=== PATIENT | male | born 1940 | race Caucasian/White ===

== ENCOUNTER 2019-04-07 13:44 | Emergency (ER) | payer MEDICARE, BC ==
[2019-04-07] MEDS ORDERED: Sodium Chloride 0.9% 10 ML Syringe FLUSH PRN (14:05)
[2019-04-07] MEDS ORDERED: Sodium Chloride 0.9% 1,000 ML IV SCH (14:15)
[2019-04-07 14:42] LABS: ANION GAP 15.4 mmol/L (10-20); CHLORIDE,CL 104 mmol/L (98-107); SODIUM,NA 140 mmol/L (136-145)
--- NOTE | 2019-04-07 14:43 | CT ---
[id number] CT/CT Head WO IV EXAM: NONCONTRAST HEAD CT INDICATION: Confusion and facial droop according to the family. COMPARISON: None. DISCUSSION: There is mild generalized atrophy. Mild chronic small vessel ischemic changes. Small chronic lacunar infarct left lentiform nucleus versus prominent for carotid space. No mass effect or midline shift. No acute hemorrhage or extra-axial fluid collection. No acute territorial infarct is identified. A limited look at the orbits and paranasal sinuses is unremarkable. IMPRESSION: 1. No acute findings. Mirza Gray MD 04/07/19 [id number] Thank you for allowing us to participate in the care of your patient.
--- NOTE | 2019-04-07 14:59 | CR ---
[id number] RAD/RAD Chest PA or AP 1V EXAM: FRONTAL CHEST INDICATION: Fatigue and confusion. COMPARISON: None. DISCUSSION: The lungs are mildly hypoinflated and the right hemidiaphragm is mildly elevated. The heart is enlarged with borderline central vascular congestion. Mild bibasilar atelectasis with no definite infiltrates identified. Prior sternotomy. Left subclavian approach pacemaker leads with the tips overlying the RA and RV. IMPRESSION: 1. Mild cardiomegaly with borderline central vascular congestion. Mirza Gray MD 04/07/19 [id number] Thank you for allowing us to participate in the care of your patient.
[2019-04-07] MEDS ORDERED: Iopamidol 612 MG/ML 100 ML Bottle IVPUSH ONE (15:05)
--- NOTE | 2019-04-07 15:26 | EDM.PDOC ---
ED HPI GENERAL MEDICAL PROBLEM - General Chief Complaint: Neurological Problem Stated Complaint: HAD RECENT HEART SURGERY;SEEMS DISORIENTATED Time Seen by Provider: 04/07/19 13:44 Source of Information: Reports: Patient, Family History Limitations: Reports: No Limitations - History of Present Illness INITIAL COMMENTS - FREE TEXT/NARRATIVE: Pt. presents to ER with family with complaints of disorientation and fatigue. states that she went grocery shopping at approx. 10:30 and came home around 11. When she got home, pt. was more somnolent and drooling out of the L side of his mouth. His speech was a bit garbled at that time and was having difficulty finding words. Pt. reports that he felt fine when he woke around 9AM he had breakfast and a shower, but he also noticed that the TV screen was a little fuzzy shortly thereafter. He also complained of some "dizziness" this AM as well. Pt. presents to ER this afternoon. He denies any fever or chills. No recent trauma. Pt. states that he underwent mechanical aortic valve replacement and placement of pacemaker/defibrillator a week ago. Theses procedures were done in [place], [place]. Pt. is currently on coumadin. Pt. denies any chest pain or shortness of breath. No nausea, vomiting, or diarrhea. Onset: Today Onset Date: 04/07/19 Location: Reports: Generalized - Related Data Allergies Allergy/AdvReac Type Severity Reaction Status Date / Time No Known Allergies Allergy Verified 04/07/19 14:05 ED ROS GENERAL - Review of Systems Review Of Systems: See Below Constitutional: Reports: Weakness, Fatigue HEENT: Reports: No Symptoms Respiratory: Reports: No Symptoms Cardiovascular: Reports: No Symptoms Endocrine: Reports: No Symptoms GI/Abdominal: Reports: No Symptoms : Reports: No Symptoms Musculoskeletal: Reports: No Symptoms Skin: Reports: No Symptoms ED EXAM, GENERAL - Physical Exam Exam: See Below Exam Limited By: No Limitations General Appearance: Alert, WD/WN, No Apparent Distress Nose: Normal Inspection, Normal Mucosa, No Blood Throat/Mouth: Normal Inspection, Normal Lips, Normal Teeth, Normal Gums, Normal Oropharynx, Normal Voice, No Airway Compromise Head: Atraumatic, Normocephalic Neck: Normal Inspection, Supple, Non-Tender, Full Range of Motion Respiratory/Chest: No Respiratory Distress, Lungs Clear, Normal Breath Sounds, No Accessory Muscle Use, Chest Non-Tender Cardiovascular: Normal Peripheral Pulses, Regular Rate, Rhythm, No Edema, No Gallop, No JVD, No Murmur, No Rub GI/Abdominal: Normal Bowel Sounds, Soft, Non-Tender, No Organomegaly, No Distention, No Abnormal Bruit, No Mass, Pelvis Stable (Male) Exam: No Hernia, Normal Inspection, Normal Prostate, Circumcised Rectal (Males) Exam: Deferred Back Exam: Normal Inspection, Full Range of Motion Extremities: Normal Inspection, Normal Range of Motion, Non-Tender, No Pedal Edema, Normal Capillary Refill Neurological: Alert, Oriented, CN II-XII Intact, Normal Cognition, Other ( Initially NIH stoke scale was 2, one point off for for L lower extremity drift and L facial droop. ) Course - Orders/Labs/Meds Orders: Active Orders 24 hr Category Date Time Status EKG Documentation Completion [RC] STAT Care 04/07/19 14:05 Active Ang Head [CT] Stat Exams 04/07/19 15:00 Ordered Ang Neck [CT] Stat Exams 04/07/19 15:00 Ordered Sodium Chloride 0.9% [Normal Saline] 1,000 ml Med 04/07/19 14:15 Active IV ASDIRECTED Sodium Chloride 0.9% [Saline Flush] Med 04/07/19 14:05 Active 10 ml FLUSH ASDIRECTED PRN Peripheral IV Insertion Adult [OM.PC] Routine Oth 04/07/19 14:06 Ordered Medication Orders Sodium Chloride (Normal Saline) 1,000 mls @ 500 mls/hr IV ASDIRECTED HANANE Sodium Chloride (Saline Flush) 10 ml FLUSH ASDIRECTED PRN PRN Reason: Keep Vein Open Labs: Laboratory Tests 04/07/19 04/07/19 04/07/19 Range/Units 14:06 14:15 14:15 WBC 7.2 (4.0-10.0) x10^3/uL RBC 3.43 L (4.5-6.0) x10^6/uL Hgb 10.4 L (14.0-18.0) g/dL Hct 31.6 L (40.0-52.0) % MCV 92.1 (78.0-93.0) fL MCH 30.3 (26.0-32.0) pg MCHC 32.9 (32.0-36.0) g/dL RDW Coeff of [place] 12.9 (10.0-15.0) % Plt Count 329 (130-400) x10^3/uL Neut % (Auto) 65.2 (50.0-80.0) % Lymph % (Auto) 16.5 L (25.0-50.0) % [place] % (Auto) 13.4 H (2.0-11.0) % Eos % (Auto) 4.1 H (0.0-4.0) % Baso % (Auto) 0.8 (0.2-1.2) % PT 26.5 H (10.0-12.8) SEC INR 2.3 (2.0-3.5) Sodium (136-145) mmol/L Potassium (3.5-5.1) mmol/L Chloride (98-107) mmol/L Carbon Dioxide (21-32) mmol/L Anion Gap (10-20) mmol/L BUN (7-18) mg/dL Creatinine (0.70-1.30) mg/dL Est Cr Clr Drug Dosing Estimated GFR (MDRD) Glucose (74-106) mg/dL POC Glucose (74-106) mg/dL Lactic Acid (0.4-2.0) mmol/L Calcium (8.5-10.1) mg/dL Corrected Calcium (8.5-10.1) mg/dL Phosphorus (2.6-4.7) mg/dL Magnesium (1.8-2.4) mg/dL Total Bilirubin (0.2-1.0) mg/dL AST (15-37) U/L ALT (16-63) U/L Alkaline Phosphatase (46-116) U/L Troponin I (<=0.056) ng/mL C-Reactive Protein (<=0.9) mg/dL NT-Pro-B Natriuret Pep (<=450) pg/mL Total Protein (6.4-8.2) g/dL Albumin (3.4-5.0) g/dL Globulin Albumin/Globulin Ratio Urine Color Yellow (YELLOW) Urine Appearance Clear (CLEAR) Urine pH 6.0 (5.0-8.0) Ur Specific [place] <=1.005 Urine Protein Negative (NEGATIVE) mg/dL Urine Glucose (UA) Negative (NEGATIVE) mg/dL Urine Ketones Negative (NEGATIVE) mg/dL Urine Occult Blood Trace-lysed H (NEGATIVE) Urine Nitrite Negative (NEGATIVE) Urine Bilirubin Negative (NEGATIVE) Urine Urobilinogen 0.2 (0.2) EU/dL Ur Leukocyte Esterase Negative (NEGATIVE) Urine RBC 0-5 (NOT SEEN) /HPF Urine WBC Not seen (NOT SEEN) /HPF Urine Mucus Rare H (NEGATIVE) /LPF 04/07/19 04/07/19 04/07/19 Range/Units 14:15 14:17 14:26 WBC (4.0-10.0) x10^3/uL RBC (4.5-6.0) x10^6/uL Hgb (14.0-18.0) g/dL Hct (40.0-52.0) % MCV (78.0-93.0) fL MCH (26.0-32.0) pg MCHC (32.0-36.0) g/dL RDW Coeff of [place] (10.0-15.0) % Plt Count (130-400) x10^3/uL Neut % (Auto) (50.0-80.0) % Lymph % (Auto) (25.0-50.0) % [place] % (Auto) (2.0-11.0) % Eos % (Auto) (0.0-4.0) % Baso % (Auto) (0.2-1.2) % PT (10.0-12.8) SEC INR (2.0-3.5) Sodium 140 (136-145) mmol/L Potassium 4.4 (3.5-5.1) mmol/L Chloride 104 (98-107) mmol/L Carbon Dioxide 25 (21-32) mmol/L Anion Gap 15.4 (10-20) mmol/L BUN 19 H (7-18) mg/dL Creatinine 1.0 (0.70-1.30) mg/dL Est Cr Clr Drug Dosing TNP Estimated GFR (MDRD) > 60 Glucose 99 (74-106) mg/dL POC Glucose 94 (74-106) mg/dL Lactic Acid 0.8 (0.4-2.0) mmol/L Calcium 8.4 L (8.5-10.1) mg/dL Corrected Calcium 9.20 (8.5-10.1) mg/dL Phosphorus 4.1 (2.6-4.7) mg/dL Magnesium 2.3 (1.8-2.4) mg/dL Total Bilirubin 0.4 (0.2-1.0) mg/dL AST 13 L (15-37) U/L ALT 23 (16-63) U/L Alkaline Phosphatase 95 (46-116) U/L Troponin I 0.021 (<=0.056) ng/mL C-Reactive Protein 1.6 H (<=0.9) mg/dL NT-Pro-B Natriuret Pep 811 H (<=450) pg/mL Total Protein 7.2 (6.4-8.2) g/dL Albumin 3.0 L (3.4-5.0) g/dL Globulin 4.2 Albumin/Globulin Ratio 0.71 Urine Color (YELLOW) Urine Appearance (CLEAR) Urine pH (5.0-8.0) Ur Specific [place] Urine Protein (NEGATIVE) mg/dL Urine Glucose (UA) (NEGATIVE) mg/dL Urine Ketones (NEGATIVE) mg/dL Urine Occult Blood (NEGATIVE) Urine Nitrite (NEGATIVE) Urine Bilirubin (NEGATIVE) Urine Urobilinogen (0.2) EU/dL Ur Leukocyte Esterase (NEGATIVE) Urine RBC (NOT SEEN) /HPF Urine WBC (NOT SEEN) /HPF Urine Mucus (NEGATIVE) /LPF Meds: Medications Generic Name Dose Route Start Last Admin Trade Name Freq PRN Reason Stop Dose Admin Sodium Chloride 1,000 mls @ 500 mls/hr 04/07/19 14:15 Normal Saline IV ASDIRECTED HANANE Sodium Chloride 10 ml 04/07/19 14:05 Saline Flush FLUSH ASDIRECTED PRN Keep Vein Open Discontinued Medications Generic Name Dose Route Start Last Admin Trade Name Freq PRN Reason Stop Dose Admin Iopamidol 100 ml 04/07/19 15:05 Isovue-300 (61%) IVPUSH 04/07/19 15:06 ONETIME ONE Departure - Departure Time of Disposition: 15:32 Disposition: DC/Tfer to Acute Hospital 02 Condition: Good Clinical Impression: CVA (cerebral vascular accident) - Discharge Information Referrals: Tommie Brandon MD [Primary Care Provider] - Forms: Interfacility Transfer EMTALA, ED Department Discharge - Problem List Review Problem List Initiated/Reviewed/Updated: Yes - My Orders Last 24 Hours: My Active Orders 04/07/19 14:05 EKG Documentation Completion [RC] STAT Sodium Chloride 0.9% [Saline Flush] 10 ml FLUSH ASDIRECTED PRN 04/07/19 14:06 Peripheral IV Insertion Adult [OM.PC] Routine 04/07/19 14:15 Sodium Chloride 0.9% [Normal Saline] 1,000 ml IV ASDIRECTED 04/07/19 15:00 Ang Head [CT] Stat Ang Neck [CT] Stat - Assessment/Plan Last 24 Hours: My Active Orders 04/07/19 14:05 EKG Documentation Completion [RC] STAT Sodium Chloride 0.9% [Saline Flush] 10 ml FLUSH ASDIRECTED PRN 04/07/19 14:06 Peripheral IV Insertion Adult [OM.PC] Routine 04/07/19 14:15 Sodium Chloride 0.9% [Normal Saline] 1,000 ml IV ASDIRECTED 04/07/19 15:00 Ang Head [CT] Stat Ang Neck [CT] Stat Plan: CT scan is negative. CT angiogram is pending. Again, initial NIH stroke scale was 2. Shortly before transfer, pt. began experiencing dysarthria, aphasia, as well as upper and lower extremity weakness/pronator drift. Repeat NIH scale was approx. 18 as performed by nursing. I did speak again with Dr. Fernandez. He will be seen as a stroke patient in the ER. Pt. will be transported emergently to [facility]. CT angiogram is pending. Will forward results to accepting facility.
--- NOTE | 2019-04-07 16:02 | CT ---
[id number] CT/CTA Head Neck EXAM: CT ANGIOGRAM HEAD AND NECK INDICATION: Left-sided facial droop and leg graft. COMPARISON: Head CT same date. DISCUSSION: Circumferential hard plaque appearing to at least 50% stenosis of the bilateral cavernous segments of the internal carotid arteries involving the intracranial segments of both vertebral arteries. There is additionally circumferential hard plaque in both common carotid bifurcations without hemodynamically significant stenosis and scattered plaque in the aortic arch and at the origins of the major branch vessels. The common carotid, cervical internal carotid and cervical vertebral arteries do not demonstrate significant stenosis, dissection, vessel cut off or other findings. There is a origin of the right posterior cerebral artery. No major intracranial vessel cut off, aneurysm or other acute findings. Degenerative changes are noted in the spine. Recent median sternotomy. IMPRESSION: 1. Multifocal hard plaque. No large vessel occlusion or acute findings. Mirza Gray MD 04/07/19 1600 Thank you for allowing us to participate in the care of your patient.
== END 2019-04-07 15:37 | disposition short-term general hospital (02) ==
LOC: VM.ED 13:44
DX: I63.9 Cerebral infarction, unspecified (principal)
CPT/HCPCS: 36415; 70450; 70496; 70498; 71045; 80053; 81001; 82962; 83605; 83735; 83880; 84100; 84484; 85025; 85610; 86140; 93005; 96365; 99291; 99292; Q9967; 99284-GF; J7030